=== PATIENT | male | born 1960 | race Caucasian/White ===

== ENCOUNTER → 2023-11-05 10:40 | Outpatient (REF) | payer OTHER, SELFPAY | LOC: PAVMRI 10:40 | PROVIDERS: ATTENDING PHYSICIAN Urology; FAMILY PHYSICIAN Family Medicine | DX: C64.1 Malignant neoplasm of right kidney, except renal pelvis (principal) | CPT/HCPCS: 74183; A9575 ==

== ENCOUNTER → 2023-11-10 13:32 | Outpatient (REF) | payer OTHER, SELFPAY | LOC: HWRAD 13:32 | PROVIDERS: ATTENDING PHYSICIAN Urology; FAMILY PHYSICIAN Family Medicine | DX: C64.1 Malignant neoplasm of right kidney, except renal pelvis (principal) | CPT/HCPCS: 71046 ==

== ENCOUNTER 2024-03-10 22:11 | Emergency (ER) | payer OTHER, MEDICARE, SELFPAY ==
[2024-03-10 22:16] VITALS: BP 142/88
[2024-03-10 22:47] VITALS: BP 127/74
[2024-03-10 22:51] VITALS: BMI 30.8
[2024-03-10 22:55] LABS: ALT (SGPT) 22 U/L (0-50); AST (SGOT) 24 U/L (17-59); Albumin 4.9 g/dl (3.5-5.0); Alkaline Phosphatase 54 U/L (38-126); Blood Urea Nitrogen 38 mg/dl (9-20); Calcium 9.8 mg/dl (8.4-10.2); Carbon Dioxide 26 mmol/L (22-30); Chloride 103 mmol/L (98-107); Estimated Creatinine Clearance 43 ml/min; Glucose 146 mg/dl (70-99); Potassium 4.1 mmol/L (3.5-5.1); Sodium 140 mmol/L (135-145); Total Bilirubin 0.8 mg/dl (0.2-1.3); Total Protein 7.3 g/dl (6.3-8.2); eGFR 36.36
[2024-03-10 23:05] LABS: % Basophils 0.7 % (0-2); % Eosinophils 3.7 % (0-6); % Immature Granulocytes 0.6 % (0-0.5); % Lymphocytes 28.8 % (20.5-51.1); % Monocytes 6.4 % (1.7-9.3); % Neutrophils 59.8 % (42.2-75.2); Absolute Basophils 0.1 10^3/uL (0-0.2); Absolute Eosinophils 0.4 10^3/uL (0-0.7); Absolute Immature Granulocytes 0.1 10^3/uL (0-0.05); Absolute Lymphocytes 2.7 10^3/uL (1.2-3.4); Absolute Monocytes 0.6 10^3/uL (0.1-0.6); Absolute Neutrophils 5.6 10^3/uL (1.4-6.5); Hematocrit 42.1 % (39.0-52.0); Hemoglobin 14.9 g/dL (13.0-18.0); Mean Corp Hgb Conc. 35.4 g/dL (33.0-37.0); Mean Corpuscular Volume 87.7 fL (80.0-94.0); Mean Platelet Volume 9.4 fL (7.4-10.4); Nucleated Red Blood Cells % 0 % (-); Platelet Count 181 10^3/uL (130-400); Red Cell Dist. Width 12.6 % (11.5-14.5); White Blood Cell Count 9.4 10^3/uL (4.8-10.8)
[2024-03-11] VITALS: BP 146/108
[2024-03-11 01:00] VITALS: BP 131/87
[2024-03-11] MEDS: LOPRESSOR 5 MG IV ×2 (01:10→01:46)
[2024-03-11] MEDS: NSS 500 IV (01:11)
[2024-03-11 01:39] VITALS: BP 141/87
[2024-03-11 02:00] VITALS: BP 131/87
--- NOTE | 2024-03-11 02:08 | ED.GENMED ---
History of Present Illness
General
Chief Complaint: Heart Rate Problem
Source: patient and spouse
Exam Limitations: none
Time Seen by Provider: 03/11/24 00:38
Nursing documentation reviewed up to this point in time: agreed with
History of Present Illness
History of Present Illness:
64-year-old male with a past medical history of hypertension, hyperlipidemia, diabetes, renal cancer status post nephrectomy who presents to the emergency room for evaluation of atrial fibrillation�he has no symptoms but found to be in A-fib by his
[employer]. Patient says that he was resting on the couch watching a movie tonight and his watch told him that his heart rate was elevated. He says that he performed ECG on his Apple Watch which told him that he 'might be' in A-fib. He called
his primary doctor who sent him to the emergency room to be assessed. He denies any symptoms�no chest pain, palpitations, shortness of breath, dizziness. No other complaints. He denies any known history of A-fib or family history of A-fib. He
has never seen a materials management supervisor he says.
Review of Systems
Review of Systems
All Other Systems: ROS reviewed and negative except as documented in HPI and ROS
Constitutional: Denies fever or chills
Respiratory: Denies cough or trouble breathing
Cardiac: Denies chest pain, palpitations or syncope
ABD/GI: Denies abdominal pain, nausea or vomiting
: Denies flank pain
Musculoskeletal: Denies neck pain or back pain
Neurological: Denies dizzy, headache, weakness or numbness
Phy Exam
Physical Exam
Physical Exam:
General: Awake, alert, oriented x3; no acute distress
Head: Normocephalic, atraumatic
Eyes: Conjunctiva normal
Throat: Airway intact, handling secretions
Neck: Trachea midline, supple without meningismus
Lungs: Clear to auscultation bilaterally, no wheezing, rales, rhonchi
Heart: Tachycardia with irregularly irregular rhythm, no murmurs, gallops, or rubs
Abd: Soft, non distended, nontender
Neuro: Cranial nerves grossly intact, speech fluid
Skin: no rash
Extremities: No edema in extremities, equal pulses in all extremities
Scores
[id number] Score for Afib Stroke Risk
Age in Years (65=0, 65-74=1, >/=75=2): 65-74
Sex (Female=+1): Female
Congestive Heart Failure History (Yes=+1): No
Hypertension History (Yes=+1): Yes
Stroke/TIA/Thromboembolism History (Yes=+2): No
Vascular Disease History (Yes=+1): No
Diabetes Mellitus (Yes=+1): Yes
Score: 4
Anticoagulation Recommendations: Recommend anticoagulation (as validated in nonvalvular fib)
Heart Failure Risk
Heart Failure Risk Score: Not Applicable
Heart Score for Chest Pain Patients
STEMI patient?: Not applicable
Withdrawal Assessment of Alcohol
Withdrawal Assessment Completed?: Not applicable
Course
Orders/Labs/Results
Orders:
Orders
03/10/24 22:12
Electrocardiogram (*1) Urgent
Reason for Study: Tachycardia
EKG- Treatment ONCE
03/10/24 22:25
Complete Blood Count/With Diff Urgent
Comprehensive Metabolic Panel Urgent
Magnesium Urgent
Comment: ADD ON
03/11/24 01:05
0.9% Sodium Chloride 500 ml [Nss] 500 ml IV BOLUS
Metoprolol [Lopressor] 5 mg IV NOW STA
03/11/24 01:07
Add On- LAB Urgent
Tests Added?: magnesium level
03/11/24 01:38
Metoprolol [Lopressor] 5 mg IV NOW STA
03/11/24 02:15
Apixaban [Eliquis] 5 mg PO ONCE ONE
03/11/24 02:18
Diltiazem Extended Release [Cardizem Cd] 120 mg PO NOW STA
Abnormal Lab Results
03/10/24
22:25
Abs Immat Gran (auto) 0.1 H 10^3/uL
(0-0.05)
Immature Gran % 0.6 H %
(0-0.5)
BUN 38 H mg/dl
(9-20)
Creatinine 2.0 H mg/dL
(0.7-1.3)
Glucose 146 H mg/dl
(70-99)
03/10/24 22:25
03/10/24 22:25
Vital Signs
Pulse: 97
Initial and Last Documented VS:
Initial Vital Signs
Temp Pulse Resp BP Pulse Ox
36.7 C 114 18 142/88 95
03/10/24 22:16 03/10/24 22:16 03/10/24 22:16 03/10/24 22:16 03/10/24 22:16
Last Documented Vital Signs
Temp Pulse Resp BP Pulse Ox
36.7 C 117 20 131/87 95
03/10/24 22:16 03/11/24 02:28 03/11/24 01:50 03/11/24 02:28 03/11/24 01:00
MDM/Problems Addressed
Differential Diagnosis Includes:
Atrial fibrillation
MDM/Problems Addressed:
64-year-old male with history as document presents to the emergency room for evaluation of atrial fibrillation that was detected by his [employer]. He is completely asymptomatic. He has no known history of A-fib. Blood pressure normal,
rest of vitals normal. Physical exam as above. EKG confirms A-fib with heart rate in the low 100s�heart rate variable on my assessment between 90 and 130. He would not be a good candidate for ED cardioversion given his complete absence of
symptoms onset of this is unclear and chronicity of A-fib is unclear. Will plan to check basic lab work. Will provide some fluids and Lopressor to start. Ultimately plan to start on Eliquis. Reassess after the above.
Labs reviewed: CBC unremarkable, CMP shows creatinine of 2.0�increased from prior labs here which were in 2019 but since then patient has had total nephrectomy on the right (2020) and he says his baseline creatinine is around 2. Reassessment of his
heart rate slightly improved but still fluctuating from 90-110. Will provide another dose of Lopressor and reassess.
Heart rate continues to improve still somewhat high normal 90-100. Will treat with a dose of p.o. diltiazem, will start on Eliquis. He remains asymptomatic, blood pressure has been stable. I had a long discussion with the patient I did offer him
admission for observation of his heart rate versus discharge on Cardizem and Eliquis with close cardiology follow-up. He prefers discharge feels comfortable with this. We had a long discussion about return precautions. Advised him to keep an eye
on his heart rate for the next few days and if he has significant tachycardia to return to the emergency room. Advised to avoid caffeine and alcohol. Also advised to return with any symptoms. I did review his medication list-he has a history of
high blood pressure and is on multiple medications for this and included and these medications are amlodipine and labetalol. Discussed with pharmacist; obviously overlap in treatment with diltiazem/amlodipine and metoprolol/labetalol�after
discussion with patient we will plan to discontinue amlodipine in favor of diltiazem with new onset A-fib. All questions answered.
Chronic conditions affecting care:
Kidney disease
*Pulse Oximetry
Patient hypoxic: no
*EKG
Interpreted by ED Provider?: Yes
Heart Rate: 112
Rate: tachycardiac
Rhythm: a-fib
[place]: normal axis
Interval: normal interval
QRS Pattern: normal QRS
Ischemia: no ischemia
*Critical Care Note
Total Time (30-74mins, 75-104mins- exclusive of procedures): Not Applicable
Data Reviewed
Review of Other/Old Records Reveals: Labs and Records
Source: patient and spouse
Patient Management
Escalation/DeEscalation of care consider admission/obs:
Offered admission�shared decision making plan for discharge with close outpatient follow-up plan
ED Attending Note
-
Portions of this chart may have been created with voice recognition software.� Occasional wrong word or��sound alike� substitutions may have occurred due to the inherent limitations of voice recognition software.
Discharge Plan
Departure
Patient Disposition: Home (Routine Discharge)
Date of Disposition: 03/11/24
Time of Disposition: 03:08
Patient with high blood pressure during this ER visit?: Yes
Discharge Problem:
Atrial fibrillation
Instructions: Atrial Fibrillation (DC), Chest Pain CBC Follow Up
Prescriptions:
New
diltiazem HCl [Cartia XT] 120 mg capsule,extended release 24hr
120 mg PO DAILY Qty: 30 0RF
Eliquis 5 mg tablet
5 mg PO BID Qty: 60 0RF
Discontinued
amlodipine 10 mg Tablet
10 mg PO DAILY
No Action
chromium picolinate 1,000 MCG tablet
2,000 mcg PO DAILY
labetalol 200 mg Tablet
200 mg PO BID
omeprazole 10 mg Capsule,Delayed Release(Dr/Ec)
10 mg PO DAILY
candesartan 32 mg Tablet
32 mg PO DAILY
repaglinide 1 mg Tablet
1 mg PO BID
rosuvastatin 10 mg Tablet
10 mg PO DAILY
cholecalciferol (vitamin D3) [Vitamin D3] 50 mcg (2,000 unit) Tablet
50 mcg PO DAILY
dapagliflozin propanediol [Farxiga] 5 mg Tablet
5 mg PO DAILY
aspirin 81 mg Capsule
81 mg PO DAILY
Mounjaro 5 mg/0.5 mL Pen Injector
5 mg SC DAILY
Insulin Basaglar
13 units SC DAILY
Referrals:
Brian Mclain MD [Active] - Call in 1-3 days for appt
Annalisa Lara, [Family Provider] -
Activity Restrictions/Additional Instructions:
Thank you for visiting the Emergency Department at [facility]
1. Please schedule a follow up appointment as directed. Call first thing tomorrow morning to make an appointment.
2. If indicated, please take your medications as instructed and indicated on discharge paperwork.
3. If any of your symptoms do not improve, or persist, or become more severe within 6-12 hours, please return to the emergency department for further care.
4. Please return to the emergency department if you develop a headache, neck pain/stiffness, fever greater than 100.4F, chest pain, shortness of breath, persistent nausea, vomiting, slurred speech, difficulty walking, numbness/tingling, weakness,
signs of infection or any other symptoms that are worrisome to you.
Please call [phone] if you have any questions.
Interventions
Interventions:
*Risk Screen - Suicide Last Done: 03/10/24 23:31
*General Assessment Last Done: 03/10/24 22:15
*Neglect/Abuse Screening Last Done: 03/10/24 23:31
ED- Fall Risk Assessment Last Done: 03/10/24 22:51
*ED COVID-19 Vaccine History Last Done: 03/10/24 22:16
ED- Cardiac Assessment Last Done: 03/10/24 22:51
ED- Pulmonary Assessment Last Done: 03/10/24 22:51
Discharge Date and Time
Print Language: MALTESE
[2024-03-11] MEDS: CARDIZEM CD 120 MG PO (02:28)
[2024-03-11] MEDS: ELIQUIS 5 MG PO (02:28)
[2024-03-11 03:00] VITALS: BP 145/91
== END 2024-03-11 03:32 | disposition home or self-care (01) ==
LOC: EMR 22:11
PROVIDERS: Emergency Medicine; EMERGENCY PHYSICIAN Emergency Medicine; FAMILY PHYSICIAN Family Medicine
DX: I48.91 Unspecified atrial fibrillation (principal); I10 Essential (primary) hypertension; E78.5 Hyperlipidemia, unspecified; E11.9 Type 2 diabetes mellitus without complications
CPT/HCPCS: 99284; 96374; 96361; 96376; 80053; 83735; 85025; 93005

== ENCOUNTER → 2024-03-15 09:22 | Outpatient (REF) | payer OTHER, MEDICARE, SELFPAY | LOC: RCS 09:22 | PROVIDERS: ATTENDING PHYSICIAN Internal Medicine Cardiovascular Disease; FAMILY PHYSICIAN Family Medicine | DX: I48.91 Unspecified atrial fibrillation (principal) | CPT/HCPCS: 93225; 93226 ==

== ENCOUNTER → 2024-04-01 10:09 | Outpatient (REF) | payer OTHER, SELFPAY | LOC: HWRCS 10:09 | PROVIDERS: ATTENDING PHYSICIAN Internal Medicine Cardiovascular Disease; FAMILY PHYSICIAN Family Medicine | DX: I48.91 Unspecified atrial fibrillation (principal) | CPT/HCPCS: 93306 ==

== ENCOUNTER → 2024-05-17 14:28 | Outpatient (REF) | payer OTHER, SELFPAY | LOC: HWRAD 14:28 | PROVIDERS: ATTENDING PHYSICIAN Physician Assistant Medical; FAMILY PHYSICIAN Family Medicine | DX: C64.1 Malignant neoplasm of right kidney, except renal pelvis (principal) | CPT/HCPCS: 71046 ==

== ENCOUNTER → 2024-09-28 10:01 | Outpatient (REF) | payer OTHER, SELFPAY | LOC: HWRAD 10:01 | PROVIDERS: ATTENDING PHYSICIAN Family Medicine | DX: M54.16 Radiculopathy, lumbar region (principal) | CPT/HCPCS: 72110 ==

== ENCOUNTER → 2025-05-24 14:37 | Outpatient (REF) | payer MEDICARE, OTHER, SELFPAY | LOC: HWRAD 14:37 | PROVIDERS: ATTENDING PHYSICIAN Urology; FAMILY PHYSICIAN Family Medicine | DX: C64.1 Malignant neoplasm of right kidney, except renal pelvis (principal) | CPT/HCPCS: 71046 ==